=== PATIENT | female | born 1985 | race Caucasian/White ===

== ENCOUNTER 2017-08-11 13:30 | Inpatient (IN) | payer OTHER ==
[~2017-08-11] VITALS: Ht 165.1 cm; Wt 75.0 kg
[~2017-08-11 13:30] MED LIST: ASPI-621 PO; CLOP75TA PO; FLUC200T4 PO; GABA600T2 PO; MIRT30TA4 PO; OXYC-296 PO; SPIR100T2 PO; TOPI50TA8 PO; VENL100T PO
[2017-08-11 14:48] LABS: HEMATOCRIT 44.9 % (34.6-47.8); HEMOGLOBIN 15.5 g/dL (11.7-16.4); WHITE BLOOD COUNT 6.6 x10^3/uL (3.4-10)
[2017-08-11] MEDS ORDERED: TIZA4TAB PO (14:54)
[2017-08-11 15:01] LABS: ASPARTATE AMINO TRANSFERASE 14 U/L (15-37); BLOOD UREA NITROGEN 16 mg/dL (7-18)
[2017-08-11] MEDS ORDERED: ONDANSETRON 2MG/ML, 2ML IVPush ONE (15:30)
[2017-08-11 15:56] LABS: HCG UR LOT HCG7030192
[2017-08-11] MEDS ORDERED: ONDANSETRON 2MG/ML, 2ML ONE ×2 (16:09→19:50)
[2017-08-11] MEDS ORDERED: HYDROmorphone 2 MG/ML, 1ML ONE ×3 (16:09→18:32)
[2017-08-11 16:10] LABS: IS PT STATUS REG ER OR PRE ER? YES
[2017-08-11 16:20] LABS: HCG UR OBC PASS; PATH.CAST-FLAG NOT PRESENT; SPERM-FLAG NOT PRESENT; SRC-FLAG NOT PRESENT; XTAL-FLAG NOT PRESENT; YLC-FLAG NOT PRESENT
[2017-08-11] MEDS: HYDROmorphone 1 MG/ML, 1ML IVPush PRN ×2 (16:28→17:06)
[2017-08-11] MEDS ORDERED: LORazepam 2 MG/ML, 1ML ONE (16:57)
[2017-08-11] MEDS ORDERED: LORazepam 2 MG/ML, 1ML IVPush ONE (17:00)
[2017-08-11] MEDS ORDERED: DIPHENHYDRAMINE 50 MG/ML, 1ML ONE (17:54)
[2017-08-11] MEDS ORDERED: FENTANYL PF 100 MCG/2ML ONE (17:54)
[2017-08-11] MEDS ORDERED: FENTANYL PF 100 MCG/2ML IV ONE (18:00)
[2017-08-11] MEDS ORDERED: DIPHENHYDRAMINE 50 MG/ML, 1ML IVPush ONE (18:00)
[2017-08-11] MEDS ORDERED: SODIUM CHLORIDE FLUSH 10ML SYR IVF PRN (19:00)
[2017-08-11] MEDS ORDERED: ASPIRIN 81 MG TABLET CHEW PO ONE (19:00)
[2017-08-11] MEDS ORDERED: SODIUM CHLORIDE 0.9% 1,000 ML IV SCH (19:19)
[2017-08-11] MEDS ORDERED: MEPERIDINE 50 MG TABLET PO PRN ×4 (19:30→22:00)
[2017-08-11] MEDS ORDERED: hydrALAzine 20 MG/ML, 1ML IVPush PRN (19:30)
[2017-08-11] MEDS ORDERED: ONDANSETRON 2MG/ML, 2ML IVPush PRN (19:30)
[2017-08-11] MEDS ORDERED: DIPHENHYDRAMINE 25 MG CAPSULE PO PRN (19:30)
[2017-08-11] MEDS ORDERED: DIPHENHYDRAMINE 25 MG CAPSULE ONE (19:48)
[2017-08-11] MEDS ORDERED: ASPIRIN 81 MG TABLET CHEW ONE (19:51)
[2017-08-11] MEDS ORDERED: OMNIPAQUE 350 MG/ML, 100ML BOTTLE ONE (20:44)
[2017-08-11 21:00] VITALS: BP 122/76
[2017-08-12] MEDS ORDERED: MEPERIDINE 50 MG TABLET PO PRN (02:00)
== END 2017-08-11 22:05 | disposition left against medical advice (07) | DRG 313 ==
LOC: ED 19:02 → EDIP 19:19 → SUATTDRO 19:19 → 5SO 20:51
PROVIDERS: ADMIT Hospitalist; ATTEND Hospitalist
PROC: 0T9B70Z Drainage of Bladder with Drainage Device, Via Natural or Artificial Opening (ICD-10-PCS; principal; 2017-08-11)
DX: R07.89 Other chest pain (principal); M41.9 Scoliosis, unspecified; Q25.1 Coarctation of aorta; Z53.21 Procedure and treatment not carried out due to patient leaving prior to being seen by health care provider; Z82.49 Family history of ischemic heart disease and other diseases of the circulatory system; Z87.891 Personal history of nicotine dependence; Z88.5 Allergy status to narcotic agent; Z91.040 Latex allergy status; Z88.8 Allergy status to other drugs, medicaments and biological substances
CPT/HCPCS: 36415; 70450; 70496; 71020; 71275; 80053; 81001; 81025; 83690; 84484; 85025; 87086; 93005; 96374; 96375; 96376; J1170; J2405; J3010; Q9967; J1200; J2060; Q0163

== ENCOUNTER → 2017-08-14 | Outpatient (CLI) | payer OTHER ==
[~2017-08-14] MED LIST changes: +REGADENOSON 0.4 MG/5 ML SYRINGE ONE; +TIZA4TAB PO
== END | disposition home or self-care (01) ==
LOC: CVU 06:43
PROVIDERS: ATTEND Internal Medicine Cardiovascular Disease
DX: R07.89 Other chest pain (principal); R06.02 Shortness of breath; R00.0 Tachycardia, unspecified; Q25.1 Coarctation of aorta
CPT/HCPCS: 78452; 93017; 93306; A9502; J2785